=== PATIENT | female | born 1990 | race African-American/Black ===

== ENCOUNTER 2016-10-08 07:30 | Emergency (ER) | payer MEDICAID | END 2016-10-08 09:26 | disposition home or self-care (01) | LOC: ER 07:30 | DX: R10.12 Left upper quadrant pain (principal); R07.89 Other chest pain; S29.011A Strain of muscle and tendon of front wall of thorax, initial encounter; S46.912A Strain of unspecified muscle, fascia and tendon at shoulder and upper arm level, left arm, initial encounter | CPT/HCPCS: 36415; 71020; 80053; 81003; 82274; 82553; 83690; 84484; 84703; 85025; 93005 ==